=== PATIENT | female | born 1975 | race Caucasian/White ===

== ENCOUNTER → 2016-09-07 | Outpatient (CLI) | payer OTHER ==
--- NOTE | 2016-09-07 17:07 | REP ---
Right wrist four views : There is no fracture or dislocation. Mineralization and joint spaces are normal. There are no calcifications or foreign bodies. Impression: Negative right wrist .
== END ==
LOC: M CLY 14:56
PROVIDERS: ATTEND Family Medicine
DX: M25.531 Pain in right wrist (principal)

== ENCOUNTER → 2017-05-22 | Outpatient (CLI) | payer OTHER ==
--- NOTE | 2017-05-23 08:15 | REP ---
Thyroid ultrasound: The thyroid right lobe measures 3.8 x 1.5 x 1.6 cm. The thyroid left lobe measures 3.1 x 1.0 x 1.3 cm. The right and left lobes are normal size. The isthmus measures 4.4 mm in thickness and is slightly thickened. There are no nodules or masses. The thyroid parenchyma is diffusely heterogeneous. This is nonspecific and can be seen in goiter and thyroiditis. Signed by Rocky Bonilla MD 05/23/2017 08:06 A
== END ==
LOC: M RAD 17:00
PROVIDERS: ATTEND Family Medicine
DX: E01.0 Iodine-deficiency related diffuse (endemic) goiter (principal)

== ENCOUNTER → 2019-01-01 | Outpatient (CLI) | payer OTHER ==
--- NOTE | 2019-01-02 01:20 | REP ---
Clinical: Chronic left foot pain Technique: AP, lateral, bilateral oblique views left foot. Findings: The osseous structures and joint spaces are intact and normal. There is no evidence for acute fracture or dislocation. Surrounding soft tissues are unremarkable. No subcutaneous emphysema or radiodense foreign body. Impression: Age-appropriate left foot series . No acute fracture or dislocation.
== END ==
LOC: M CLY 15:16
PROVIDERS: ATTEND Family Medicine
DX: M79.672 Pain in left foot (principal)

== ENCOUNTER → 2019-01-17 | Outpatient (CLI) | payer OTHER ==
--- NOTE | 2019-01-17 09:09 | REP ---
MRI LEFT FOOT WITHOUT CONTRAST: TECHNIQUE: Multiple sequences obtained in the axial, coronal and sagittal planes. Correlation made with plain films 01/01/2019. There is marrow edema seen in the proximal half of the 4th metatarsal and also in the base of the 3rd metatarsal. Other osseous structures of the foot demonstrate normal marrow signal with no other abnormality. There is adjacent overlying subcutaneous soft tissue edema. In the dorsal soft tissues of the lateral mid foot. Flexor and extensor tendons of the foot appear intact with no tenosynovitis. Plantar tendon is intact. There is no evidence of plantar fasciitis. The visualized tendons and ligaments of the ankle appear intact. No joint effusion is seen. No ganglion cyst is seen. Osseous structures are well aligned with no subluxation. IMPRESSION: Marrow edema in the proximal half of the 4th metatarsal shaft and also at the base of the 3rd metatarsal. Findings suggest stress reaction or bone bruising given the patient's history of multiple injuries. There is overlying adjacent subcutaneous soft tissue edema in the dorsal soft tissues. No other significant findings identified. Electronically Signed by Rocky Farrar MD 01/17/2019 09:24 A
== END ==
LOC: M RAD 07:29
PROVIDERS: ATTEND Family Medicine
DX: M25.475 Effusion, left foot (principal)

== ENCOUNTER → 2019-02-04 | Outpatient (REF) | payer OTHER ==
[2019-02-04 18:37] LABS: C REACTIVE PROTEIN QUANTITATIV < 0.30 MG/DL (0.00-0.30); RHEUMATOID FACTOR QUANT < 10.0 IU/ML (<15.0); URIC ACID 4.4 MG/DL (2.6-6.0)
[2019-02-07 00:06] LABS: ANTINUCLEAR ANTIBODIES DIRECT Negative (Negative)
== END ==
LOC: M LABDRAWC 17:19
PROVIDERS: ATTEND Orthopaedic Surgery
DX: M84.376A Stress fracture, unspecified foot, initial encounter for fracture (principal); X58.XXXA Exposure to other specified factors, initial encounter; Y92.9 Unspecified place or not applicable

== ENCOUNTER → 2019-08-14 | Outpatient (CLI) | payer BC ==
[2019-08-14 12:37] LABS: BASO % 0.6 % (0.0-1.0); EOS # 0.2 10^3/uL (0.0-0.5); EOS % 2.2 % (0.0-3.0); HEMATOCRIT 42.3 % (36.0-47.0); HEMOGLOBIN 13.9 g/dl (12.0-15.5); LYMPH # 1.4 10^3/uL (1.5-5.0); LYMPH % 20.2 % (24.0-44.0); MEAN CORPUSCULAR HEMOGLOBIN 30.8 pg (27.0-33.0); MEAN CORPUSCULAR HGB CONC 32.9 g/dl (32.0-36.5); MEAN CORPUSCULAR VOLUME 93.6 fl (80.0-96.0); MONO # 0.4 10^3/uL (0.0-0.8); MONO % 6.4 % (0.0-5.0); NEUTROPHILS # 4.7 10^3/uL (1.5-8.5); NEUTROPHILS % 70.2 % (36.0-66.0); PLATELET COUNT, AUTOMATED 169 10^3/uL (150-450); RED BLOOD COUNT 4.52 10^6/uL (4.00-5.40); WHITE BLOOD COUNT 6.7 10^3/uL (4.0-10.0)
[2019-08-14 13:14] LABS: ALBUMIN 3.8 GM/DL (3.2-5.2); ALT/SGPT 18 U/L (12-78); BILIRUBIN,TOTAL 0.4 MG/DL (0.2-1.0); BLOOD UREA NITROGEN 12 MG/DL (7-18); CALCIUM LEVEL 8.7 MG/DL (8.5-10.1); CARBON DIOXIDE LEVEL 22 MEQ/L (21-32); CHLORIDE LEVEL 106 MEQ/L (98-107); CREATININE FOR GFR 0.89 MG/DL (0.55-1.30); FREE T4 0.93 NG/DL (0.76-1.46); GLOMERULAR FILTRATION RATE > 60.0 (>58); GLUCOSE, FASTING 180 MG/DL (70-100); SODIUM LEVEL 137 MEQ/L (136-145); TOTAL PROTEIN 7.3 GM/DL (6.4-8.2)
== END ==
LOC: M LAB 11:14
PROVIDERS: ATTEND Internal Medicine Gastroenterology
DX: R19.4 Change in bowel habit (principal)

== ENCOUNTER → 2019-08-19 | Outpatient (REF) | payer BC | LOC: M LAB REF 13:43 | PROVIDERS: ATTEND Internal Medicine Gastroenterology | DX: R19.4 Change in bowel habit (principal) ==

== ENCOUNTER → 2019-09-04 | Outpatient (CLI) | payer BC ==
[~2019-09-04] MED LIST: E-Z-PAQUE 96% w/w SUSP 176GM BTL As Ordered ONE
--- NOTE | 2019-09-04 19:37 | REP ---
Small bowel follow-through The procedure was performed under the direct supervision of Dr. Rodriguez. The images were reviewed with Dr. Rodriguez. 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 The intestinal gas pattern is nonspecific. Liquid barium was administered and the barium column was followed through the small bowel to the level of the terminal ileum. Small bowel transit time is approximately 150 minutes. During fluoroscopy gentle palpation shows all loops are freely movable and pliable. There are no fixed or angulated loops. The small bowel mucosal pattern is normal in course and caliber. There is no transition to suggest a partial small bowel obstruction. Spot filming of the terminal ileum shows it to be unremarkable. Impression: Small bowel follow-through examination within normal limits. 1 minute of fluoro time was utilized for this procedure. Electronically Signed by KARINA Pacheco 09/04/2019 04:11 P Electronically Signed by Bishop Rodriguez MD 09/04/2019 07:28 P
== END ==
LOC: M RAD 08:01
PROVIDERS: ATTEND Internal Medicine Gastroenterology
DX: R19.4 Change in bowel habit (principal)

== ENCOUNTER → 2019-09-27 | Outpatient (REF) | payer BC ==
[2019-09-27 14:35] LABS: BLOOD UREA NITROGEN 20 MG/DL (7-18); CALCIUM LEVEL 9.3 MG/DL (8.5-10.1); CARBON DIOXIDE LEVEL 29 MEQ/L (21-32); CHLORIDE LEVEL 103 MEQ/L (98-107); CHOLESTEROL LEVEL 254 MG/DL (<200); CHOLESTEROL RISK RATIO 4.305 (<5); CREATININE FOR GFR 0.92 MG/DL (0.55-1.30); GLOMERULAR FILTRATION RATE > 60.0 (>58); GLUCOSE, FASTING 145 MG/DL (70-100); HDL CHOLESTEROL 59 MG/DL (>40); LDL CHOLESTEROL 155 MG/DL (<100); NON-HDL-C 195 MG/DL; POTASSIUM SERUM 4.2 MEQ/L (3.5-5.1); SODIUM LEVEL 138 MEQ/L (136-145); TRIGLYCERIDES LEVEL 199 MG/DL (<150)
[2019-09-27 14:55] LABS: HEMOGLOBIN A1c 6.3 %
== END ==
LOC: M SFHCCAPE 08:07
PROVIDERS: ATTEND Urology
DX: E11.9 Type 2 diabetes mellitus without complications (principal)

== ENCOUNTER 2019-10-10 12:02 | Day surgery (SDC) | payer BC ==
[~2019-10-10] VITALS: Ht 162.6 cm; Wt 88.0 kg
[~2019-10-10 12:02] MED LIST changes: +ACID1CAP5 PO; +DICY20TA11 PO; -E-Z-PAQUE 96% w/w SUSP 176GM BTL As Ordered ONE; +EVEN500C2 PO; +FEXO180T58 PO; +MAGN200T PO; +MONT10TA4 PO; +NS 1,000 ML IV ONE; +PHEN-239 PO; +POTA2.5T PO; +VITA500C24 PO; +VITEX PO
[2019-10-10] MEDS ORDERED: propofoL 200 MG/20 ML VIAL As Ordered ONE (14:00)
[2019-10-10] MEDS ORDERED: LIDOCAINE 2% INJ 100 MG/5 ML SDV (FOR ANES.) As Ordered ONE (14:00)
[2019-10-10] MEDS ORDERED: fentaNYL 100 MCG/2 ML INJECTION (J3010) As Ordered ONE (14:02)
--- NOTE | 2019-10-10 14:40 | ROOR ---
Patient Name: Nataliya Rincon Procedure Date: 10/10/2019 2:20 PM Date of : 1975 Age: 44 Room: [facility] Gender: Female Note Status: Finalized Procedure: Upper GI endoscopy Indications: Generalized abdominal pain, Suspected irritable bowel syndrome, Endoscopy to assess diarrhea in patient suspected of having disease of the small-bowel Providers: Nate GILL MD Referring MD: JESUS HUBBARD DO Requesting Provider: Medicines: Monitored Anesthesia Care Complications: No immediate complications. Procedure: Pre-Anesthesia Assessment: - The heart rate, respiratory rate, oxygen saturations, blood pressure, adequacy of pulmonary ventilation, and response to care were monitored throughout the procedure. The Endoscope was introduced through the mouth, and advanced to the second part of duodenum. The upper GI endoscopy was accomplished without difficulty. The patient tolerated the procedure well. Findings: The esophagus was normal. The stomach was normal. The examined duodenum was normal. Biopsies for histology were taken with a cold forceps in the second portion of the duodenum and in the third portion of the duodenum for evaluation of celiac disease. Impression: - Normal esophagus. - Normal stomach. - Normal examined duodenum. - Biopsies were taken with a cold forceps for evaluation of celiac disease. Recommendation: - Await pathology results. - Telephone endoscopist for pathology results in 2 weeks. Nate Gill MD Nate GILL MD 10/10/2019 2:39:44 PM Electronically signed by Nate GILL MD Number of Addenda: 0 Note Initiated On: 10/10/2019 2:20 PM Estimated Blood Loss: Estimated blood loss: none.
--- NOTE | 2019-10-10 14:58 | ROOR ---
Patient Name: Nataliya Rincon Procedure Date: 10/10/2019 2:25 PM Date of : 1975 Age: 44 Room: [facility] Gender: Female Note Status: Finalized Procedure: Colonoscopy Indications: Suspected irritable bowel syndrome, Irritable bowel syndrome with diarrhea, Change in bowel habits Providers: Nate GILL MD Referring MD: JESUS HUBBARD DO Requesting Provider: Medicines: Monitored Anesthesia Care Complications: No immediate complications. Procedure: Pre-Anesthesia Assessment: - The heart rate, respiratory rate, oxygen saturations, blood pressure, adequacy of pulmonary ventilation, and response to care were monitored throughout the procedure. The Colonoscope was introduced through the anus and advanced to 10 cm into the ileum. The colonoscopy was performed without difficulty. The patient tolerated the procedure well. The quality of the bowel preparation was good. Findings: The perianal and digital rectal examinations were normal. Two sessile polyps were found in the rectum. The polyps were 4 to 8 mm in size. These polyps were removed with a cold snare. Resection and retrieval were complete. Mild sigmoid diverticulosis and small internal hemorrhoids. Retroflexion in the right colon was performed. The exam was otherwise normal throughout the examined colon. The terminal ileum appeared normal. Biopsies for histology were taken with a cold forceps from the entire colon for evaluation of microscopic colitis. Impression: - Two 4 to 8 mm polyps in the rectum, removed with a cold snare. Resected and retrieved. - Mild sigmoid diverticulosis and small internal hemorrhoids. - The examined portion of the ileum was normal. - Biopsies were taken with a cold forceps from the entire colon for evaluation of microscopic colitis. - (Irritable Bowel Syndrome/IBS suspected.) Recommendation: - Telephone endoscopist for pathology results in 2 weeks. - Repeat colonoscopy in 5 years for surveillance. - Lactose free diet. - Use Bentyl (dicyclomine) 20 mg PO Q 4-6 hrs PRN 30 min AC. Nate Gill MD Nate GILL MD 10/10/2019 2:57:55 PM Electronically signed by Nate GILL MD Number of Addenda: 0 Note Initiated On: 10/10/2019 2:25 PM Estimated Blood Loss: Estimated blood loss: none.
[2019-10-10 15:15] VITALS: BP 140/72
== END 2019-10-10 15:28 | disposition home or self-care (01) ==
LOC: M OPP 12:02
PROVIDERS: ATTEND Internal Medicine Gastroenterology
DX: K62.1 Rectal polyp (principal); K58.0 Irritable bowel syndrome with diarrhea; R19.4 Change in bowel habit; K64.8 Other hemorrhoids; K57.30 Diverticulosis of large intestine without perforation or abscess without bleeding; R10.84 Generalized abdominal pain; Z88.1 Allergy status to other antibiotic agents; Z88.5 Allergy status to narcotic agent; Z88.8 Allergy status to other drugs, medicaments and biological substances
CPT/HCPCS: 43239; 45380; 45385; 88305; J3010

== ENCOUNTER → 2020-01-02 | Outpatient (REF) | payer BC ==
[~2020-01-02] MED LIST changes: -NS 1,000 ML IV ONE
[2020-01-02 14:08] LABS: ALBUMIN 3.7 GM/DL (3.2-5.2); ALT/SGPT 31 U/L (12-78); BILIRUBIN,TOTAL 0.5 MG/DL (0.2-1.0); BLOOD UREA NITROGEN 10 MG/DL (7-18); CALCIUM LEVEL 8.9 MG/DL (8.5-10.1); CARBON DIOXIDE LEVEL 23 MEQ/L (21-32); CHLORIDE LEVEL 104 MEQ/L (98-107); CHOLESTEROL LEVEL 178 MG/DL (<200); CHOLESTEROL RISK RATIO 2.781 (<5); CREATININE FOR GFR 0.82 MG/DL (0.55-1.30); GLOMERULAR FILTRATION RATE > 60.0 (>58); GLUCOSE, FASTING 120 MG/DL (70-100); HDL CHOLESTEROL 64 MG/DL (>40); LDL CHOLESTEROL 93 MG/DL (<100); NON-HDL-C 114 MG/DL; POTASSIUM SERUM 4.2 MEQ/L (3.5-5.1); SODIUM LEVEL 137 MEQ/L (136-145); TOTAL PROTEIN 7.4 GM/DL (6.4-8.2); TRIGLYCERIDES LEVEL 107 MG/DL (<150)
[2020-01-02 14:09] LABS: HEMOGLOBIN A1c 6.4 %
== END ==
LOC: M SFHCCLAY 08:56
PROVIDERS: ATTEND Family Medicine
DX: E11.9 Type 2 diabetes mellitus without complications (principal); E78.2 Mixed hyperlipidemia

== ENCOUNTER → 2020-04-09 | Outpatient (REF) | payer BC ==
[2020-04-09 14:17] LABS: ALBUMIN 3.4 GM/DL (3.2-5.2); ALT/SGPT 26 U/L (12-78); BILIRUBIN,TOTAL 0.3 MG/DL (0.2-1.0); BLOOD UREA NITROGEN 15 MG/DL (7-18); CALCIUM LEVEL 8.8 MG/DL (8.5-10.1); CARBON DIOXIDE LEVEL 27 MEQ/L (21-32); CHLORIDE LEVEL 107 MEQ/L (98-107); CREATININE FOR GFR 0.82 MG/DL (0.55-1.30); GLOMERULAR FILTRATION RATE > 60.0 (>58); GLUCOSE, FASTING 130 MG/DL (70-100); POTASSIUM SERUM 4.2 MEQ/L (3.5-5.1); SODIUM LEVEL 138 MEQ/L (136-145)
== END ==
LOC: M LABDRAWC 11:58
PROVIDERS: ATTEND Family Medicine
DX: E11.9 Type 2 diabetes mellitus without complications (principal); E07.9 Disorder of thyroid, unspecified; E78.2 Mixed hyperlipidemia

== ENCOUNTER → 2020-10-19 | Outpatient (REF) | payer BC ==
[~2020-10-19] MED LIST changes: +MONT10TA10 PO; -MONT10TA4 PO
[2020-10-19 12:47] LABS: ALBUMIN 3.7 GM/DL (3.2-5.2); ALT/SGPT 22 U/L (12-78); BILIRUBIN,TOTAL 0.4 MG/DL (0.2-1.0); BLOOD UREA NITROGEN 18 MG/DL (7-18); CALCIUM LEVEL 8.9 MG/DL (8.5-10.1); CARBON DIOXIDE LEVEL 22 MEQ/L (21-32); CHLORIDE LEVEL 105 MEQ/L (98-107); CHOLESTEROL LEVEL 206 MG/DL (<200); CHOLESTEROL RISK RATIO 3.377 (<5); GLOMERULAR FILTRATION RATE > 60.0 (>58); GLUCOSE, FASTING 137 MG/DL (70-100); HDL CHOLESTEROL 61 MG/DL (>40); LDL CHOLESTEROL 118 MG/DL (<100); NON-HDL-C 145 MG/DL; POTASSIUM SERUM 4.1 MEQ/L (3.5-5.1); SODIUM LEVEL 137 MEQ/L (136-145); TOTAL PROTEIN 7.2 GM/DL (6.4-8.2); TRIGLYCERIDES LEVEL 134 MG/DL (<150)
[2020-10-19 15:07] LABS: HEMOGLOBIN A1c 5.9 %
== END ==
LOC: M SFHCCLAY 08:06
PROVIDERS: ATTEND Family Medicine
DX: E11.9 Type 2 diabetes mellitus without complications (principal); E78.2 Mixed hyperlipidemia; E07.9 Disorder of thyroid, unspecified

== ENCOUNTER → 2020-11-03 | Outpatient (CLI) | payer SELFPAY | LOC: M LABSMTC 09:40 | PROVIDERS: ATTEND Pediatrics | DX: Z20.822 Contact with and (suspected) exposure to COVID-19 (principal) ==

== ENCOUNTER → 2021-01-11 | Outpatient (REF) | payer BC ==
[2021-01-11 18:58] LABS: ALBUMIN 3.8 GM/DL (3.2-5.2); ALT/SGPT 32 U/L (12-78); BILIRUBIN,TOTAL 0.4 MG/DL (0.2-1.0); BLOOD UREA NITROGEN 10 MG/DL (7-18); CALCIUM LEVEL 9.1 MG/DL (8.5-10.1); CARBON DIOXIDE LEVEL 24 MEQ/L (21-32); CHLORIDE LEVEL 107 MEQ/L (98-107); CREATININE FOR GFR 0.77 MG/DL (0.55-1.30); FREE T4 0.92 NG/DL (0.76-1.46); GLOMERULAR FILTRATION RATE > 60.0 (>58); GLUCOSE, FASTING 132 MG/DL (70-100); POTASSIUM SERUM 5.1 MEQ/L (3.5-5.1); SODIUM LEVEL 136 MEQ/L (136-145); TOTAL PROTEIN 7.4 GM/DL (6.4-8.2); TOTAL T3 123.5 NG/DL (60.0-181.0)
== END ==
LOC: M SFHCCLAY 08:47
PROVIDERS: ATTEND Family Medicine
DX: E11.9 Type 2 diabetes mellitus without complications (principal); E07.9 Disorder of thyroid, unspecified

== ENCOUNTER → 2021-02-04 | Outpatient (CLI) | payer BC ==
--- NOTE | 2021-02-04 17:07 | REP ---
INDICATION: PAIN IN UNSPECIFIED JOINT COMPARISON: Left foot x-ray dated 01/01/2019 and MRI dated 01/17/2019 TECHNIQUE: AP, lateral, bilateral oblique views right and left foot. FINDINGS: The osseous structures, joint spaces, and surrounding soft tissues are essentially symmetric and age-appropriate. Small bilateral calcaneal heel spurs are identified. No significant osteoarthritic or inflammatory arthritic changes are appreciated. No evidence for acute or healed injury. There is no evidence for sequelae of prior acute findings identified on MRI dated 01/17/2019. IMPRESSION: Essentially normal bilateral foot radiograph series. <Electronically signed by Manohar Singh > 02/04/21 [id number]
--- NOTE | 2021-02-04 17:07 | REP ---
INDICATION: PAIN IN UNSPECIFIED JOINT. COMPARISON: None. TECHNIQUE: Four views each hand FINDINGS: Right hand: The joint spaces are symmetric and relatively well maintained throughout. Minimal marginal osteophyte formation is seen involving the DIP joints of digits 2 through 5 inclusive. There is no periarticular osteopenia. There are no marginal erosions. There is no acute fracture, dislocation, or subluxation. Left hand: The joint spaces are symmetric and relatively well maintained throughout. There is minimal marginal osteophyte formation seen involving the DIP joints of digits 2 and 4. There is no periarticular osteopenia. There are no marginal erosions. There is a lesion seen involving the proximal phalanx of the 4th digit medially. This measures 8 mm. The transition zone is less than narrow on some of the sides. There is no evidence of an acute fracture. IMPRESSION: 1. Bilateral chronic changes as described above. 2. Low-density bony lesion involving the proximal aspect of the proximal phalanx of the 4th digit of the left hand as described above. Evaluation with pre and post gadolinium enhanced MRI is warranted. <Electronically signed by Rodrigo Michael > 02/04/21 [id number]
[2021-02-04 19:29] LABS: BASO # 0.1 10^3/uL (0.0-0.2); BASO % 0.7 % (0.0-1.0); EOS # 0.1 10^3/uL (0.0-0.5); EOS % 1.9 % (0.0-3.0); HEMATOCRIT 43.7 % (36.0-47.0); HEMOGLOBIN 14.6 g/dl (12.0-15.5); LYMPH # 1.8 10^3/uL (1.5-5.0); LYMPH % 25.4 % (24.0-44.0); MEAN CORPUSCULAR HEMOGLOBIN 31.4 pg (27.0-33.0); MEAN CORPUSCULAR HGB CONC 33.4 g/dl (32.0-36.5); MONO # 0.5 10^3/uL (0.0-0.8); MONO % 7.8 % (2.0-8.0); NEUTROPHILS # 4.4 10^3/uL (1.5-8.5); NEUTROPHILS % 64.1 % (36.0-66.0); PLATELET COUNT, AUTOMATED 177 10^3/uL (150-450); RED BLOOD COUNT 4.65 10^6/uL (4.00-5.40); WHITE BLOOD COUNT 6.9 10^3/uL (4.0-10.0)
[2021-02-04 19:46] LABS: ALBUMIN 4.2 GM/DL (3.2-5.2); ALT/SGPT 42 U/L (12-78); BILIRUBIN,TOTAL 0.2 MG/DL (0.2-1.0); BLOOD UREA NITROGEN 10 MG/DL (7-18); CALCIUM LEVEL 9.3 MG/DL (8.5-10.1); CARBON DIOXIDE LEVEL 25 MEQ/L (21-32); CHLORIDE LEVEL 103 MEQ/L (98-107); CREATININE FOR GFR 0.79 MG/DL (0.55-1.30); GLOMERULAR FILTRATION RATE > 60.0 (>58); GLUCOSE, FASTING 122 MG/DL (70-100); RHEUMATOID FACTOR QUANT < 10.0 IU/ML (<15.0); SODIUM LEVEL 139 MEQ/L (136-145); TOTAL PROTEIN 8.2 GM/DL (6.4-8.2)
[2021-02-04 19:54] LABS: THYROGLOBULIN ANTIBODY 58.1 U/ML (<60.0)
[2021-02-04 21:40] LABS: ERYTHROCYTE SEDIMENTATION RATE 17 mm/hr (0-20)
[2021-02-09 23:07] LABS: ANA (HEP2) Negative (.); CYCLIC CITRULLINATED PEPTIDE 6 units (0-19); HLA-B27 Negative (.)
== END ==
LOC: M LAB 16:08
PROVIDERS: ATTEND Internal Medicine Rheumatology
DX: M25.50 Pain in unspecified joint (principal); M85.841 Other specified disorders of bone density and structure, right hand

== ENCOUNTER → 2021-04-27 | Outpatient (REF) | payer BC ==
[2021-04-27 12:34] LABS: HEMOGLOBIN A1c 6.2 %
[2021-04-27 12:37] LABS: ALBUMIN 3.8 GM/DL (3.2-5.2); ALT/SGPT 37 U/L (12-78); BILIRUBIN,TOTAL 0.4 MG/DL (0.2-1.0); BLOOD UREA NITROGEN 17 MG/DL (7-18); CALCIUM LEVEL 9.2 MG/DL (8.5-10.1); CARBON DIOXIDE LEVEL 28 MEQ/L (21-32); CHLORIDE LEVEL 105 MEQ/L (98-107); CREATININE FOR GFR 0.84 MG/DL (0.55-1.30); GLOMERULAR FILTRATION RATE > 60.0 (>58); GLUCOSE, FASTING 158 MG/DL (70-100); POTASSIUM SERUM 4.7 MEQ/L (3.5-5.1); SODIUM LEVEL 138 MEQ/L (136-145); TOTAL PROTEIN 7.4 GM/DL (6.4-8.2)
== END ==
LOC: M SFHCCLAY 07:44
PROVIDERS: ATTEND Family Medicine
DX: E11.9 Type 2 diabetes mellitus without complications (principal); E07.9 Disorder of thyroid, unspecified

== ENCOUNTER → 2021-09-02 | Outpatient (REF) | payer BC ==
[~2021-09-02] MED LIST changes: -DICY20TA11 PO; +DICY20TA20 PO; -MONT10TA10 PO; +MONT10TA97 PO
[2021-09-02 12:21] LABS: ALBUMIN 3.6 GM/DL (3.2-5.2); ALT/SGPT 27 U/L (12-78); BILIRUBIN,TOTAL 0.4 MG/DL (0.2-1.0); BLOOD UREA NITROGEN 17 MG/DL (7-18); CALCIUM LEVEL 8.8 MG/DL (8.5-10.1); CARBON DIOXIDE LEVEL 27 MEQ/L (21-32); CHLORIDE LEVEL 107 MEQ/L (98-107); CREATININE FOR GFR 0.79 MG/DL (0.55-1.30); GLOMERULAR FILTRATION RATE > 60.0 (>58); GLUCOSE, FASTING 114 MG/DL (70-100); POTASSIUM SERUM 4.2 MEQ/L (3.5-5.1); SODIUM LEVEL 138 MEQ/L (136-145)
[2021-09-02 12:31] LABS: HEMOGLOBIN A1c 5.4 %
== END ==
LOC: M SFHCCLAY 08:12
PROVIDERS: ATTEND Family Medicine
DX: E11.9 Type 2 diabetes mellitus without complications (principal); E07.9 Disorder of thyroid, unspecified

== ENCOUNTER → 2022-01-03 | Outpatient (REF) | payer BC ==
[~2022-01-03] MED LIST changes: +FEXO-117 PO; -FEXO180T58 PO
[2022-01-03 13:03] LABS: HEMOGLOBIN A1c 5.8 %
[2022-01-03 13:12] LABS: ALBUMIN 3.8 GM/DL (3.2-5.2); ALT/SGPT 25 U/L (12-78); BILIRUBIN,TOTAL 0.4 MG/DL (0.2-1.0); BLOOD UREA NITROGEN 8 MG/DL (7-18); CALCIUM LEVEL 9.5 MG/DL (8.5-10.1); CARBON DIOXIDE LEVEL 28 MEQ/L (21-32); CHLORIDE LEVEL 105 MEQ/L (98-107); CHOLESTEROL LEVEL 160 MG/DL (<200); CHOLESTEROL RISK RATIO 2.253 (<5); CREATININE FOR GFR 0.87 MG/DL (0.55-1.30); GLOMERULAR FILTRATION RATE > 60.0 (>58); GLUCOSE, FASTING 109 MG/DL (70-100); HDL CHOLESTEROL 71 MG/DL (>40); LDL CHOLESTEROL 73 MG/DL (<100); NON-HDL-C 89 MG/DL; SODIUM LEVEL 138 MEQ/L (136-145); TOTAL PROTEIN 7.8 GM/DL (6.4-8.2); TRIGLYCERIDES LEVEL 82 MG/DL (<150)
[2022-01-03 14:01] LABS: TOTAL T3 71.9 NG/DL (60.0-181.0)
== END ==
LOC: M SFHCCLAY 09:10
PROVIDERS: ATTEND Family Medicine
DX: E11.9 Type 2 diabetes mellitus without complications (principal); E07.9 Disorder of thyroid, unspecified; E78.2 Mixed hyperlipidemia

== ENCOUNTER → 2022-05-16 | Outpatient (REF) | payer BC ==
[2022-05-16 12:53] LABS: HEMOGLOBIN A1c 5.9 %
[2022-05-16 13:15] LABS: ALBUMIN 3.6 GM/DL (3.2-5.2); ALT/SGPT 25 U/L (12-78); BILIRUBIN,TOTAL 0.2 MG/DL (0.2-1.0); BLOOD UREA NITROGEN 23 MG/DL (7-18); CALCIUM LEVEL 9.1 MG/DL (8.5-10.1); CARBON DIOXIDE LEVEL 27 MEQ/L (21-32); CHLORIDE LEVEL 106 MEQ/L (98-107); CHOLESTEROL LEVEL 173 MG/DL (<200); CREATININE FOR GFR 0.84 MG/DL (0.55-1.30); GLOMERULAR FILTRATION RATE > 60.0 (>58); GLUCOSE, FASTING 131 MG/DL (70-100); HDL CHOLESTEROL 62 MG/DL (>40); LDL CHOLESTEROL 97 MG/DL (<100); NON-HDL-C 111 MG/DL; POTASSIUM SERUM 4.2 MEQ/L (3.5-5.1); SODIUM LEVEL 137 MEQ/L (136-145); TRIGLYCERIDES LEVEL 70 MG/DL (<150)
== END ==
LOC: M SFHCCLAY 07:44
PROVIDERS: ATTEND Family Medicine
DX: E11.9 Type 2 diabetes mellitus without complications (principal); E78.2 Mixed hyperlipidemia; E07.9 Disorder of thyroid, unspecified

== ENCOUNTER → 2022-09-27 | Outpatient (REF) | payer BC ==
[2022-09-27 11:41] LABS: ALBUMIN 3.7 G/DL (3.2-5.2); ALKALINE PHOSPHATASE 84 U/L (46-116); ALT/SGPT 25 U/L (7.0-40); AST/SGOT 15 U/L (<34); BILIRUBIN,TOTAL 0.4 MG/DL (0.3-1.2); BLOOD UREA NITROGEN 22 MG/DL (9-23); CALCIUM LEVEL 8.9 MG/DL (8.5-10.1); CARBON DIOXIDE LEVEL 26 MMOL/L (20-31); CHLORIDE LEVEL 104 MMOL/L (98-107); CREATININE FOR GFR 0.84 MG/DL (0.55-1.30); GLOMERULAR FILTRATION RATE > 60.0 (>58); GLUCOSE, FASTING 131 MG/DL (60-100); POTASSIUM SERUM 4.6 MMOL/L (3.5-5.1); SODIUM LEVEL 137 MMOL/L (136-145); THYROID STIMULATING HORMONE 3.655 uIU/ML (0.55-4.78); TOTAL PROTEIN 7.2 G/DL (5.7-8.2)
[2022-09-27 12:04] LABS: HEMOGLOBIN A1c 5.9 % (4.0-6.0)
== END ==
LOC: M SFHCCLAY 07:37
PROVIDERS: ATTEND Family Medicine
DX: E11.9 Type 2 diabetes mellitus without complications (principal); E07.9 Disorder of thyroid, unspecified

== ENCOUNTER → 2023-01-17 | Outpatient (REF) | payer BC ==
[2023-01-17 12:35] LABS: ALBUMIN 3.9 G/DL (3.2-5.2); ALKALINE PHOSPHATASE 77 U/L (46-116); ALT/SGPT 22 U/L (7.0-40); AST/SGOT 10 U/L (<34); BILIRUBIN,TOTAL 0.4 MG/DL (0.3-1.2); BLOOD UREA NITROGEN 16 MG/DL (9-23); CARBON DIOXIDE LEVEL 25 MMOL/L (20-31); CHLORIDE LEVEL 104 MMOL/L (98-107); CHOLESTEROL LEVEL 181 MG/DL (<200); CHOLESTEROL RISK RATIO 3.44 (<5); CREATININE FOR GFR 0.82 MG/DL (0.55-1.30); GLOMERULAR FILTRATION RATE > 60.0 (>58); GLUCOSE, FASTING 141 MG/DL (60-100); HDL CHOLESTEROL 52.6 MG/DL (>40); LDL CHOLESTEROL 100.8 MG/DL (<100); NON-HDL-C 128.4 MG/DL; POTASSIUM SERUM 4.4 MMOL/L (3.5-5.1); SODIUM LEVEL 136 MMOL/L (136-145); TRIGLYCERIDES LEVEL 138 MG/DL (<150)
[2023-01-17 12:36] LABS: THYROID STIMULATING HORMONE 3.622 uIU/ML (0.55-4.78)
[2023-01-17 13:06] LABS: HEMOGLOBIN A1c 6.3 % (4.0-6.0)
== END ==
LOC: M SFHCCLAY 07:54
PROVIDERS: ATTEND Family Medicine
DX: E11.9 Type 2 diabetes mellitus without complications (principal); E07.9 Disorder of thyroid, unspecified

== ENCOUNTER → 2023-01-23 | Outpatient (CLI) | payer BC | LOC: M CLY 08:10 | PROVIDERS: ATTEND Family Medicine | DX: M25.552 Pain in left hip (principal) ==

== ENCOUNTER → 2023-07-17 | Outpatient (REF) | payer BC ==
[2023-07-17 12:42] LABS: HEMATOCRIT 42.8 % (36.0-47.0); HEMOGLOBIN 14.4 g/dl (12.0-15.5); MEAN CORPUSCULAR HGB CONC 33.6 g/dl (32.0-36.5); MEAN CORPUSCULAR VOLUME 92.2 fl (80.0-96.0); PLATELET COUNT, AUTOMATED 177 10^3/uL (150-450); RED BLOOD COUNT 4.64 10^6/uL (4.00-5.40); WHITE BLOOD COUNT 4.8 10^3/uL (4.0-10.0)
[2023-07-17 12:52] LABS: ERYTHROCYTE SEDIMENTATION RATE 15 mm/hr (0-20)
[2023-07-17 13:11] LABS: C REACTIVE PROTEIN QUANTITATIV < 0.40 MG/DL (<1.0)
[2023-07-17 13:13] LABS: ALBUMIN 3.6 G/DL (3.2-5.2); ALKALINE PHOSPHATASE 76 U/L (46-116); ALT/SGPT 26 U/L (7.0-40); AST/SGOT 14 U/L (<34); BILIRUBIN,TOTAL 0.5 MG/DL (0.3-1.2); BLOOD UREA NITROGEN 14 MG/DL (9-23); CARBON DIOXIDE LEVEL 27 MMOL/L (20-31); CHLORIDE LEVEL 103 MMOL/L (98-107); CHOLESTEROL LEVEL 231 MG/DL (<200); CHOLESTEROL RISK RATIO 4.02 (<5); CREATININE FOR GFR 0.77 MG/DL (0.55-1.30); GLOMERULAR FILTRATION RATE > 60.0 (>58); GLUCOSE, FASTING 181 MG/DL (60-100); HDL CHOLESTEROL 57.4 MG/DL (>40); LDL CHOLESTEROL 147.8 MG/DL (<100); NON-HDL-C 173.6 MG/DL; POTASSIUM SERUM 4.5 MMOL/L (3.5-5.1); RHEUMATOID FACTOR QUANT < 3.5 IU/ML (<14); SODIUM LEVEL 136 MMOL/L (136-145); TOTAL PROTEIN 6.8 G/DL (5.7-8.2); TRIGLYCERIDES LEVEL 129 MG/DL (<150)
[2023-07-17 13:14] LABS: FREE T4 0.97 NG/DL (0.89-1.76); THYROID STIMULATING HORMONE 3.302 uIU/ML (0.55-4.78); TOTAL T3 115.1 NG/DL (60.0-181.0)
[2023-07-17 13:23] LABS: HEMOGLOBIN A1c 6.8 % (4.0-6.0)
[2023-07-18 23:07] LABS: ANA (HEP2) Negative (.); CYCLIC CITRULLINATED PEPTIDE 10 units (0-19)
== END ==
LOC: M SFHCCLAY 07:54
PROVIDERS: ATTEND Family Medicine
DX: E11.9 Type 2 diabetes mellitus without complications (principal); E07.9 Disorder of thyroid, unspecified; E78.2 Mixed hyperlipidemia; M25.552 Pain in left hip

== ENCOUNTER 2024-06-18 12:02 | Emergency (ER) | payer BC, OTHER ==
[~2024-06-18] VITALS: Ht 162.6 cm; Wt 86.4 kg
[2024-06-18] MEDS ORDERED: RABIES IMMUNE GLOBULIN 1500 INTERNATIONAL UNIT/5ML VIAL IM.IMMUN ONE (12:25)
[2024-06-18] MEDS: RABIES VACCINE 2.5 INTERNATIONAL UNITS/ML VIAL (RABAVERT) IM ONE (12:45)
[2024-06-18] MEDS: RABIES IMMUNE GLOBULIN 1500 INTERNATIONAL UNIT/5ML VIAL IM.IMMUN ONE (12:46)
[2024-06-18] MEDS: RABIES IMMUNE GLOBULIN 300 INTERNATIONAL UNITS/1ML VIAL IM.IMMUN ONE (12:47)
[2024-06-18] MEDS ORDERED: DOXY-440 PO (14:38)
[2024-06-18 14:50] VITALS: BP 127/73; TEMP 97; O2SAT 100
== END 2024-06-18 14:51 | disposition home or self-care (01) ==
LOC: M ED 12:02
DX: S60.571A Other superficial bite of hand of right hand, initial encounter (principal); S60.572A Other superficial bite of hand of left hand, initial encounter; W55.01XA Bitten by cat, initial encounter; Y92.009 Unspecified place in unspecified non-institutional (private) residence as the place of occurrence of the external cause; Y93.9 Activity, unspecified; Y99.9 Unspecified external cause status; E11.9 Type 2 diabetes mellitus without complications; J30.81 Allergic rhinitis due to animal (cat) (dog) hair and dander; Z79.899 Other long term (current) drug therapy; Z88.0 Allergy status to penicillin; Z88.5 Allergy status to narcotic agent; Z88.8 Allergy status to other drugs, medicaments and biological substances

== ENCOUNTER 2024-06-21 15:18 | Emergency (ER) | payer BC, OTHER ==
[~2024-06-21] VITALS: Ht 162.6 cm; Wt 88.9 kg
[~2024-06-21 15:18] MED LIST changes: +DOXY-440 PO
[2024-06-21 15:20] VITALS: BP 134/65; TEMP 96.7; O2SAT 99
[2024-06-21] MEDS ORDERED: CLIN-250 (15:46)
[2024-06-21] MEDS ORDERED: BERB500C PO (15:46)
[2024-06-21] MEDS: RABIES VACCINE 2.5 INTERNATIONAL UNITS/ML VIAL (RABAVERT) IM ONE (15:51)
== END 2024-06-21 16:01 | disposition home or self-care (01) ==
LOC: M ED 15:18
DX: Z23 Encounter for immunization (principal); Z20.3 Contact with and (suspected) exposure to rabies; W55.01XD Bitten by cat, subsequent encounter; Y92.9 Unspecified place or not applicable; Y93.9 Activity, unspecified; Y99.9 Unspecified external cause status; E11.9 Type 2 diabetes mellitus without complications; Z79.899 Other long term (current) drug therapy

== ENCOUNTER 2024-06-25 14:39 | Emergency (ER) | payer OTHER, BC ==
[~2024-06-25] VITALS: Ht 162.6 cm; Wt 89.5 kg
[~2024-06-25 14:39] MED LIST changes: +BERB500C PO; +CLIN-250
[2024-06-25 14:41] VITALS: BP 133/88; TEMP 97.1; O2SAT 100
[2024-06-25] MEDS: RABIES VACCINE 2.5 INTERNATIONAL UNITS/ML VIAL (RABAVERT) IM ONE (14:52)
== END 2024-06-25 15:13 | disposition home or self-care (01) ==
LOC: M ED 14:39
DX: Z23 Encounter for immunization (principal); Z20.3 Contact with and (suspected) exposure to rabies; Z79.899 Other long term (current) drug therapy; Z88.0 Allergy status to penicillin; Z88.5 Allergy status to narcotic agent; Z88.8 Allergy status to other drugs, medicaments and biological substances

== ENCOUNTER 2024-07-02 11:58 | Emergency (ER) | payer OTHER, BC ==
[~2024-07-02] VITALS: Ht 162.6 cm; Wt 88.7 kg
[~2024-07-02 11:58] MED LIST changes: -FEXO-117 PO; +FEXO-193 PO
[2024-07-02 12:03] VITALS: BP 121/56; TEMP 98.3; O2SAT 97
[2024-07-02] MEDS: RABIES VACCINE 2.5 INTERNATIONAL UNITS/ML VIAL (RABAVERT) IM ONE (12:55)
== END 2024-07-02 13:14 | disposition home or self-care (01) ==
LOC: M ED 11:58
DX: Z23 Encounter for immunization (principal); Z20.3 Contact with and (suspected) exposure to rabies; S60.51 Abrasion of hand; W55.01XD Bitten by cat, subsequent encounter; Y92.9 Unspecified place or not applicable; Y93.9 Activity, unspecified; Y99.9 Unspecified external cause status; E11.9 Type 2 diabetes mellitus without complications; Z79.899 Other long term (current) drug therapy; Z88.0 Allergy status to penicillin; Z88.5 Allergy status to narcotic agent; Z88.8 Allergy status to other drugs, medicaments and biological substances

== ENCOUNTER → 2024-07-15 | Outpatient (REF) | payer BC ==
[2024-07-15 11:40] LABS: FREE T4 1.16 NG/DL (0.89-1.76); THYROID STIMULATING HORMONE 3.382 uIU/ML (0.55-4.78)
== END ==
LOC: M SFHCCLAY 08:39
PROVIDERS: ATTEND Family Medicine
DX: E11.9 Type 2 diabetes mellitus without complications (principal); E07.9 Disorder of thyroid, unspecified

== ENCOUNTER → 2024-07-17 | Outpatient (CLI) | payer BC | LOC: M PLAIMG 07:37 | PROVIDERS: ATTEND Family Medicine | DX: S09.90XS Unspecified injury of head, sequela (principal); R42 Dizziness and giddiness; Z91.81 History of falling ==

== ENCOUNTER → 2024-09-30 | Outpatient (CLI) | payer BC | LOC: M CLY 15:19 | PROVIDERS: ATTEND Family Medicine | DX: M79.645 Pain in left finger(s) (principal) ==

== ENCOUNTER → 2024-09-30 | Outpatient (CLI) | payer BC | LOC: M CLY 15:11 | PROVIDERS: ATTEND Family Medicine | DX: M79.645 Pain in left finger(s) (principal); Z53.9 Procedure and treatment not carried out, unspecified reason ==

== ENCOUNTER → 2024-10-07 | Outpatient (REF) | payer BC | LOC: M SFHCCLAY 10:58 | PROVIDERS: ATTEND Family Medicine | DX: R19.7 Diarrhea, unspecified (principal) ==

== ENCOUNTER → 2024-10-07 | Outpatient (REF) | payer BC ==
[2024-10-07 18:24] LABS: C REACTIVE PROTEIN QUANTITATIV < 0.50 MG/DL (<1.0)
[2024-10-07 18:25] LABS: ALBUMIN 4.1 G/DL (3.2-5.2); ALKALINE PHOSPHATASE 110 U/L (35-104); ALT/SGPT 26 U/L (7.0-40); AST/SGOT 12 U/L (<34); BILIRUBIN,TOTAL 0.4 MG/DL (0.3-1.2); BLOOD UREA NITROGEN 18 MG/DL (9-23); CALCIUM LEVEL 9.5 MG/DL (8.5-10.1); CARBON DIOXIDE LEVEL 25 MMOL/L (20-31); CHLORIDE LEVEL 106 MMOL/L (98-107); CHOLESTEROL LEVEL 162 MG/DL (<200); CHOLESTEROL RISK RATIO 2.84 (<5); CREATININE FOR GFR 0.81 MG/DL (0.55-1.30); GLOMERULAR FILTRATION RATE > 60.0 (>58); GLUCOSE, FASTING 119 MG/DL (60-100); LDL CHOLESTEROL 84.6 MG/DL (<100); SODIUM LEVEL 141 MMOL/L (136-145); TOTAL PROTEIN 7.8 G/DL (5.7-8.2); TRIGLYCERIDES LEVEL 102 MG/DL (<150)
[2024-10-07 18:26] LABS: THYROID STIMULATING HORMONE 2.646 uIU/ML (0.55-4.78)
[2024-10-07 18:27] LABS: FREE T4 1.24 NG/DL (0.89-1.76)
[2024-10-07 18:29] LABS: FREE T3 3.6 PG/ML (2.3-4.2)
[2024-10-07 18:32] LABS: BASO # 0.1 10^3/uL (0.0-0.2); EOS # 0.2 10^3/uL (0.0-0.5); EOS % 3.9 % (0.0-3.0); HEMATOCRIT 42.4 % (36.0-47.0); HEMOGLOBIN 14.3 g/dl (12.0-15.5); LYMPH # 1.5 10^3/uL (1.5-5.0); LYMPH % 31.3 % (24.0-44.0); MEAN CORPUSCULAR HEMOGLOBIN 30.8 pg (27.0-33.0); MEAN CORPUSCULAR HGB CONC 33.7 g/dl (32.0-36.5); MEAN CORPUSCULAR VOLUME 91.2 fl (80.0-96.0); MONO # 0.3 10^3/uL (0.0-0.8); NEUTROPHILS # 2.8 10^3/uL (1.5-8.5); NEUTROPHILS % 56.6 % (36.0-66.0); PLATELET COUNT, AUTOMATED 187 10^3/uL (150-450); RED BLOOD COUNT 4.65 10^6/uL (4.00-5.40); WHITE BLOOD COUNT 4.9 10^3/uL (4.0-10.0)
[2024-10-07 18:37] LABS: ERYTHROCYTE SEDIMENTATION RATE 7 mm/hr (0-20)
[2024-10-07 19:01] LABS: HEMOGLOBIN A1c 5.9 % (4.0-6.0)
[2024-10-10 12:52] LABS: INSULIN LEVEL 16.5 uIU/mL (<=18.4)
== END ==
LOC: M LABDRAWC 17:23
PROVIDERS: ATTEND Emergency Medicine
DX: R14.0 Abdominal distension (gaseous) (principal); R19.7 Diarrhea, unspecified; K58.9 Irritable bowel syndrome, unspecified; M54.50 Low back pain, unspecified; M25.559 Pain in unspecified hip; E11.9 Type 2 diabetes mellitus without complications; B37.2 Candidiasis of skin and nail; R14.3 Flatulence; R10.814 Left lower quadrant abdominal tenderness; M25.50 Pain in unspecified joint; E66.3 Overweight; W55.03XS Scratched by cat, sequela